=== PATIENT | male | born 2000 | race Caucasian/White ===

== ENCOUNTER 2025-05-25 16:53 | Emergency (ER) | payer OTHER, SELFPAY ==
[2025-05-25 17:08] VITALS: BP 160/82
--- NOTE | 2025-05-25 18:27 | ED.GENMED ---
History of Present Illness
General
Chief Complaint: Male Genito-Urinary Symptoms
Source: patient
Exam Limitations: none
Time Seen by Provider: 05/25/25 17:44
Nursing documentation reviewed up to this point in time: agreed with
History of Present Illness
History of Present Illness:
Patient presents to ED secondary to persistent testicular pain over the past 24 hours. Denies direct trauma. Denies difficulty with urination. Denies rash. Denies penile discharge. Denies previous history of similar symptoms.
Past History
Past History
ED Past Medical History: Other (Crohn's)
Social History
Tobacco: Non-smoker
Alcohol: None
Drug: None
Personal: Single
Living: with roommate
Employment: Student
Family History
Family History: Other (Noncontributory)
Review of Systems
Review of Systems
Allergies reviewed?: Yes
All Other Systems: ROS reviewed and negative except as documented in HPI and ROS
Constitutional: Reports no symptoms; Denies fever or chills
ABD/GI: Reports nausea; Denies vomiting
: Reports other (testicular pain)
Musculoskeletal: Reports no symptoms
Skin: Reports no symptoms
Phy Exam
Physical Exam
Physical Exam:
Physical Exam
General: mild distress, not acutely ill. afebrile
Head: nc/at. eomi
Neck: supple. no meningeal signs.
Abdomen: normal bowel sounds. not tender.
: mild diffuse tenderness of b/l testicles noted, L>R. normal cremasteric reflex
Neuro: alert and oriented x 3. no focal neurological deficits
Skin: no rash
Psychiatric: well kept. interactive and cooperative
Extremities: no edema. no calf tenderness.
Course
Orders/Labs/Results
Orders:
Orders
05/25/25 16:54
Scrotum US [US Scrotum] Urgent
Comment:
Reason For Exam: pain discloloration
05/25/25 19:13
Urinalysis Reflex To Culture Urgent
Date Specimen was Collected: 05/25/25
Time Specimen was Collected: 19:11
Chlamydia/GC by PCR Urgent
JANINE Source: Urine
Specimen Description:
Source:: URINE
Date Specimen was Collected: 05/25/25
Time Specimen was Collected: 19:17
Urine Culture Urgent
JANINE Source: U
Specimen Description:
Date Specimen was Collected: 05/25/25
Time Specimen was Collected: 19:11
Comment: ADDON
05/25/25 20:05
Ceftriaxone Sodium [Rocephin] 500 mg IM NOW STA
Doxycycline [Vibramycin] 100 mg PO NOW STA
05/25/25 20:06
Add On - Microbiology Urgent
Tests Added?: urine culture
05/25/25 20:13
Sterile Water [Sterile Water For Injection] 10 ml .ROUTE .STK-MED ONE
Vital Signs
Initial and Last Documented VS:
Initial Vital Signs
Temp Pulse Resp BP Pulse Ox
98.4 F 58 16 160/82 98
05/25/25 17:08 05/25/25 17:08 05/25/25 17:08 05/25/25 17:08 05/25/25 17:08
Last Documented Vital Signs
Temp Pulse Resp BP Pulse Ox
98.4 F 67 16 133/80 96
05/25/25 17:08 05/25/25 19:13 05/25/25 17:08 05/25/25 21:00 05/25/25 21:00
MDM/Problems Addressed
MDM/Problems Addressed:
Scrotal ultrasound report reviewed and discussed with patient and family. In addition, discussed findings with on-call urology, Dr. Lilly, who recommends treating patient with antibiotics, including doxycycline.
*Pulse Oximetry
SaO2: 98
Oxygen Mode of Delivery: Room air
Patient hypoxic: no
*Critical Care Note
Total Time (30-74mins, 75-104mins- exclusive of procedures): Not Applicable
ED Attending Note
-
Portions of this chart may have been created with voice recognition software.� Occasional wrong word or��sound alike� substitutions may have occurred due to the inherent limitations of voice recognition software.
Discharge Plan
Departure
Patient Disposition: Home (Routine Discharge)
Date of Disposition: 05/25/25
Time of Disposition: 20:06
Patient with high blood pressure during this ER visit?: Yes
Condition: Fair
Discharge Problem:
Acute epididymitis
Instructions: Epididymitis and Orchitis
Prescriptions:
New
doxycycline hyclate 100 mg tablet
100 mg PO BID 14 Days Qty: 27 0RF
No Action
citalopram 10 MG tablet
10 mg PO DAILY
Indomethacin
1 tab PO DAILYPRN PRN (Reason: pain)
Referrals:
Feliciano Lilly MD [Active, Urology]
Jace Cano Jr., [Family Provider, Family Practice]
Activity Restrictions/Additional Instructions:
As discussed, please follow-up with your primary care physician and/or referred urologist for reevaluation. Your prescription has been sent electronically to [facility] pharmacy in [place].
Interventions
Interventions:
*Risk Screen - Suicide Last Done: 05/25/25 16:58
*General Assessment Last Done: 05/25/25 16:58
*Neglect/Abuse Screening Last Done: 05/25/25 19:11
*ED- Fall Risk Assessment Last Done: 05/25/25 19:11
*ED COVID-19 Vaccine History Last Done: 05/25/25 19:11
*Nursing Disposition Last Done: 05/25/25 21:05
ED-Male Genitourinary Assessment Last Done: 05/25/25 18:20
Discharge Date and Time
Discharge Date/Time: 05/25/25 21:05
Print Language: EGYPTIAN
[2025-05-25 19:09] VITALS: BP 161/99
[2025-05-25 19:25] LABS: Urine Character Clear (Clear)
[2025-05-25 20:00] VITALS: BP 152/71
[2025-05-25] MEDS: VIBRAMYCIN 100 MG PO (20:20)
[2025-05-25] MEDS: ROCEPHIN 500 MG IM (20:20)
[2025-05-25 21:00] VITALS: BP 133/80
== END 2025-05-25 21:05 | disposition home or self-care (01) ==
LOC: EMR 16:53
PROVIDERS: EMERGENCY PHYSICIAN Emergency Medicine; FAMILY PHYSICIAN Family Medicine
DX: N45.1 Epididymitis (principal); R11.0 Nausea; K50.90 Crohn's disease, unspecified, without complications
CPT/HCPCS: 99284; 76870; 81003; 87086; 87491; 87591; 93976